=== PATIENT | female | born 1995 | race Caucasian/White ===

== ENCOUNTER 2017-06-16 13:03 | Emergency (ER) | payer OTHER ==
[2017-06-16 13:48] LABS: ABS Basophils 0.1 10^3/ul (0-0.2); ABS Eosinophils 0.2 10^3/ul (0-0.6); ABS Lymphocytes 1.9 10^3/ul (1.0-4.8); ABS Monocytes 0.7 10^3/ul (0-0.8); ABS Neutrophils 6.3 10^3/ul (1.5-7.7); ABS Nucleated RBC 0 10^3/ul; Eosinophil % 1.8 % (0-6); Hematocrit 40 % (35-47); Hemoglobin 13.8 g/dl (12.0-16.0); Lymphocyte % 21.1 % (25-47); Mean Corpuscular HGB Conc 35 g/dl (31-36); Mean Corpuscular Hemoglobin 30 pg (27-31); Mean Corpuscular Volume 88 fL (80-97); Mean Platelet Volume 8 um3 (7.4-10.4); Nucleated Red Blood Cells % 0; Platelet Count 515 10^3/ul (150-450); Red Blood Count 4.55 10^6/ul (4.0-5.4); Red Cell Distribution Width 13 % (10.5-15); White Blood Count 9.2 10^3/ul (3.5-10.8)
[2017-06-16 14:00] LABS: EGFR Non-African American 100.1 (>60)
--- NOTE | 2017-06-16 14:17 | ED ---
Abdominal Pain/Female - HPI Summary HPI Summary: 21 female presents to ED with complaints of right lower quadrant pain. States she had a dull aching pain for the past 2-3 days however this morning had significantly sharp shooting pain. States the pain lasted a few hours, she was unable to stand up straight. Pain radiated across lower abdomen but was worst in RLQ. Denies nausea, vomiting and fever. Last normal bowel movement was yesterday. No pain blood. States the pain has since subsided since it began. Is more comfortable at this time. No other complaints. No PMHx. FHx does include ovarian cyst and appendicitis and that is what she is concerned for. Denies any previous episodes/pain. Denies urinary complaints, was just recently treated 1 month ago for UTI. Denies any vaginal bleeding/discharge. Is due for her menses this week. No concern for or STDs per patient, does use protection. Is sexually active. No complaints of dyspareunia. - History of Current Complaint Chief Complaint: EDAbdPain Stated Complaint: ABD PAIN Time Seen by Provider: 06/16/17 13:09 Hx Obtained From: Patient Onset/Duration: Sudden Onset, Lasting Hours, Still Present, Resolved Timing: Constant Severity Initially: Moderate Severity Currently: Mild Pain Intensity: 7 Pain Scale Used: 0-10 Numeric - however has since resolved to 2/10 Location: Discrete At: RLQ, Suprapubic, Umbilical Character: Sharp - aching, Dull - previous 2 days Aggravating Factor(s): Movement - standing Alleviating Factor(s): Position - sittin/laying in position Associated Signs and Symptoms: Negative: Fever, Cough, Constipation, Blood in Stool, Urinary Symptoms, Decreased Appetite, Vaginal Bleeding, Vaginal Discharge , Nausea, Vomiting Allergies/Adverse Reactions: Allergies Allergy/AdvReac Type Severity Reaction Status Date / Time Sulfa (Sulfonamide Allergy Hives Verified 06/16/17 13:07 Antibiotics) PMH/Surg Hx/FS Hx/Imm Hx Endocrine/Hematology History: Denies: Hx Anticoagulant Therapy, Hx Diabetes Cardiovascular History: Denies: Hx Hypertension Respiratory History: Denies: Hx Asthma - Surgical History Surgery Procedure, Year, and Place: n/a - Immunization History Immunizations Up to Date: Yes Infectious Disease History: No Infectious Disease History: Denies: Traveled Outside the [place] in Last 30 Days - Family History Known Family History: Positive: Other - ovarian cysts/appendicitis - Social History Alcohol Use: None Substance Use Type: Reports: None Smoking Status (MU): Never Smoked Tobacco Review of Systems Constitutional: Negative Cardiovascular: Negative Respiratory: Negative Positive: Abdominal Pain Genitourinary: Negative Musculoskeletal: Negative All Other Systems Reviewed And Are Negative: Yes Physical Exam Triage Information Reviewed: Yes Vital Signs On Initial Exam: Initial Vitals Temp Pulse Resp BP Pulse Ox 97 F 90 17 155/89 100 06/16/17 13:04 06/16/17 13:04 06/16/17 13:04 06/16/17 13:04 06/16/17 13:04 BP improved 126/83 Vital Signs Reviewed: Yes Appearance: Positive: Well-Appearing, Well-Nourished, Pain Distress - mild with movement/palpation Skin: Positive: Warm, Skin Color Reflects Adequate Perfusion, Dry. Negative: Cold, Numb, Cyanosis @, Pale, Erythema @ Head/Face: Positive: Normal Head/Face Inspection ENT: Positive: Hearing grossly normal, Pharynx normal, TMs normal Neck: Positive: Supple, Nontender Respiratory/Lung Sounds: Positive: Clear to Auscultation, Breath Sounds Present. Negative: Rales, Rhonchi, Wheezes Cardiovascular: Positive: Normal, RRR, Pulses are Symmetrical in both Upper and Lower Extremities. Negative: IRR, Murmur, Rub Abdomen Description: Positive: No Organomegaly, Soft, Guarding, McBurney's Point Tenderness, Other: - RLQ and lower quadrant tenderness. - rebound and psoas. + rovsings?. Negative: Bruit, CVA Tenderness (R), CVA Tenderness (L), Distended Bowel Sounds: Positive: Present Pelvic Exam: Positive: other - patient deferred examination Musculoskeletal: Positive: Normal Neurological: Positive: Normal, Sensory/Motor Intact, Alert, Oriented to Person Place, Time Diagnostics - Vital Signs Vital Signs Temp Pulse Resp BP Pulse Ox 06/16/17 14:00 88 126/83 99 06/16/17 13:30 80 130/82 98 06/16/17 13:16 92 97 06/16/17 13:13 144/86 06/16/17 13:04 97 F 90 17 155/89 100 - Laboratory Lab Results: Lab Results 06/16/17 06/16/17 06/16/17 Range/Units 13:35 13:35 13:35 WBC 9.2 (3.5-10.8) 10^3/ul RBC 4.55 (4.0-5.4) 10^6/ul Hgb 13.8 (12.0-16.0) g/dl Hct 40 (35-47) % MCV 88 (80-97) fL MCH 30 (27-31) pg MCHC 35 (31-36) g/dl RDW 13 (10.5-15) % Plt Count 515 H (150-450) 10^3/ul MPV 8 (7.4-10.4) um3 Neut % (Auto) 68.9 (38-83) % Lymph % (Auto) 21.1 L (25-47) % Alpine % (Auto) 7.6 H (0-7) % Eos % (Auto) 1.8 (0-6) % Baso % (Auto) 0.6 (0-2) % Absolute Neuts (auto) 6.3 (1.5-7.7) 10^3/ul Absolute Lymphs (auto) 1.9 (1.0-4.8) 10^3/ul Absolute Monos (auto) 0.7 (0-0.8) 10^3/ul Absolute Eos (auto) 0.2 (0-0.6) 10^3/ul Absolute Basos (auto) 0.1 (0-0.2) 10^3/ul Absolute Nucleated RBC 0 10^3/ul Nucleated RBC % 0 Sodium 134 (133-145) mmol/L Potassium 4.0 (3.5-5.0) mmol/L Chloride 103 (101-111) mmol/L Carbon Dioxide 25 (22-32) mmol/L Anion Gap 6 (2-11) mmol/L BUN 7 (6-24) mg/dL Creatinine 0.74 (0.51-0.95) mg/dL Est GFR ( Amer) 128.7 (>60) Est GFR (Non-Af Amer) 100.1 (>60) BUN/Creatinine Ratio 9.5 (8-20) Glucose 103 H (70-100) mg/dL Lactic Acid 1.3 (0.5-2.0) mmol/L Calcium 9.7 (8.6-10.3) mg/dL Total Bilirubin 0.30 (0.2-1.0) mg/dL AST 21 (13-39) U/L ALT 19 (7-52) U/L Alkaline Phosphatase 49 (34-104) U/L C-Reactive Protein 1.76 (< 5.00) mg/L Total Protein 7.8 (6.4-8.9) g/dL Albumin 4.4 (3.2-5.2) g/dL Globulin 3.4 (2-4) g/dL Albumin/Globulin Ratio 1.3 (1-3) Lipase 14 (11.0-82.0) U/L Beta HCG, Quant < 0.60 mIU/mL Result Diagrams: 06/16/17 13:35 06/16/17 13:35 Lab Statement: Any lab studies that have been ordered have been reviewed, and results considered in the medical decision making process. - Ultrasound No standard instances Ultrasound Interpretation: Positive (See Comments) - 4.0 cm maximum dimension complex cyst at the RIGHT ovarian is most consistent with a hemorrhagic cyst. Normal vascular flow documented to the RIGHT ovary. Small to moderate volume of free fluid. In absence of an intervening clinical concern reassessment with ultrasound in 1-2 menstrual cycles would be suggested. APPENDIX:THE APPENDIX IS NOT VISUALIZED. THERE IS NO FREE OR LOCULATED FLUID WITHIN THE RIGHT LOWER QUADRANT. 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 educated on findings. ready to be d/c. sitting comfortably on stretcher without pain Abdominal Pain Fem Course/Dx - Course Course Of Treatment: patient's pain had subsided upon arrival for examination, therefore no pain management given. deferred pelvic exam and had no concerns. labs and ultrasound obtained. labs unremarkable with negative wbc, crp elevation. normal vitals. US normal of appendix although not seen. Did show significantly sized 4.0cm right ovarian complex cyst on ultrasound. no concern for ovarian torsion at this time. appears to be patient's source of pain. educated on worsening signs and symptoms to watch out for, and on ovarian torsion. follow up with OBGYN for recheck. Ibuprofen and heating pad to help with pain/inflammation. - Diagnoses Differential Diagnosis: Positive: Appendicitis, Constipation, Ovarian Cyst Provider Diagnoses: Ovarian cyst, right, RLQ abdominal pain Discharge - Discharge Plan Condition: Good Disposition: HOME Patient Education Materials: Ovarian Cyst (ED) Referrals: [facility] [Primary Care Provider] - Sheeba Alcantar MD [Medical Doctor] - Additional Instructions: Take ibuprofen to help with pain and inflammation. Increase fluid intake. Apply heating pads. Any new or worsening symptoms please seek medical attention promptly, as discussed. Follow up with OBGYN to re-check, call to make an appointment.
[2017-06-16 14:24] LABS: Urine Appearance Clear; Urine Blood Negative (Negative); Urine Color Straw; Urine Ketones Negative (Negative); Urine Protein Negative (Negative); Urine Specific Gravity 1.006 (1.010-1.030); Urine Urobilinogen Negative (Negative)
--- NOTE | 2017-06-16 15:22 | RAD ---
HISTORY: Right lower quadrant pain, rule out appendicitis COMPARISONS: None TECHNIQUE: Multiple transverse and longitudinal ultrasound images were obtained of the right lower quadrant using grayscale and color Doppler imaging. FINDINGS: The appendix is not visualized. There is no free or loculated fluid within the right lower quadrant. IMPRESSION: THE APPENDIX IS NOT VISUALIZED. THERE IS NO FREE OR LOCULATED FLUID WITHIN THE RIGHT LOWER QUADRANT.
--- NOTE | 2017-06-16 15:25 | RAD ---
Indication: 2 days RIGHT lower quadrant pain. Comparison: No relevant prior exams available on the [facility] for comparison. Technique: Transvaginal pelvic ultrasound. Report: 7.2 x 4.2 x 5.1 cm unremarkable anteverted uterus with 9 mm endometrium. Small to moderate volume of free fluid primarily anterior to the uterus and at the bilateral adnexal regions. 5.3 x 3.3 x 3.9 cm RIGHT ovary with documented vascular flow is remarkable for a 4.0 x 2.0 x 2.6 cm complex cyst without intrinsic vascularity with a reticulated pattern of low level internal echoes. The complex cystic lesion demonstrates some inward directed margins. 3.1 x 2.1 x 2.7 cm LEFT ovary with documented vascular flow is remarkable for small follicles only. IMPRESSION: 4.0 cm maximum dimension complex cyst at the RIGHT ovarian is most consistent with a hemorrhagic cyst. Normal vascular flow documented to the RIGHT ovary. Small to moderate volume of free fluid. In absence of an intervening clinical concern reassessment with ultrasound in 1-2 menstrual cycles would be suggested.
[2017-06-16 16:11] VITALS: BP 121/81
== END 2017-06-16 16:18 | disposition home or self-care (01) ==
LOC: ED 13:03
DX: N83.201 Unspecified ovarian cyst, right side (principal); R10.31 Right lower quadrant pain; Z88.2 Allergy status to sulfonamides
CPT/HCPCS: 36415; 76705; 76830; 80053; 81003; 83605; 83690; 84702; 85025; 86140